=== PATIENT | female | born 1995 | race Caucasian/White ===

== ENCOUNTER 2017-03-17 16:40 | Emergency (ER) | payer OTHER ==
[~2017-03-17] VITALS: Ht 170.2 cm; Wt 58.8 kg
[2017-03-17 17:00] VITALS: TEMP 37; Ht 170.2 cm; Wt 58.8 kg
[2017-03-17] MEDS ORDERED: NORGTAB52 PO (17:27)
--- NOTE | 2017-03-17 17:39 | EMERGENCY ROOM VISIT NOTE ---
History Report prepared by Paula: Shannan Villalta Under the Supervision of: Dr. Jhonny Goldberg M.D. First contact with patient: 17:06 Chief Complaint: HEADACHE Stated Complaint: SEVERE HEADACHE/C1 C2 ROTATION DYSFUNCTION INJURY History of Present Illness The patient is a 22 year old female who presents to the Emergency Room with complaints of persistent headache starting today. The patient has had headaches caused by a C1 C2 rotation injury from swimming. Today her headache was worse with a shooting pain through her eyes and sensitivity to light. Her headache is currently improved. She took Excedrin and drank a lot of water prior to arrival. She denies any fall, head injury, or trauma. She is not having any problems with her arms or legs. She denies any fever, nausea, or vomiting. She has not had an MRI and does not follow with neurology. Her mother thinks these headache are triggered by stress. Source of History: patient, parent Onset: today Position: head Quality: ache Timing: other (persistent) Modifying Factors (Relieving): other (Excedrin, water) Associated Symptoms: No fevers, No nausea, No vomiting Note: Pt reports sensitivity to light. Review of Systems See HPI for pertinent positives & negatives. A total of 10 systems reviewed and were otherwise negative. Past Medical & Surgical History of C1 C2 rotation dysfunction injury. Family History Diabetes mellitus FH: heart disease Social History Smoking Status: Never Smoker Occupation Status: student Current/Historical Medications Scheduled Norgestimate-Ethinyl Estradiol (Tri-Previfem), 1 TAB PO DAILY Scheduled PRN Diclofenac (Voltaren), 75 MG PO BID PRN for Headache Allergies Coded Allergies: Sulfa Antibiotics (Verified Allergy, Unknown, rash, 09/25/14) Physical Exam Vital Signs Date Time Temp Pulse Resp B/P (MAP) Pulse Ox O2 Delivery O2 Flow Rate FiO2 03/17/17 18:50 78 16 123/71 100 Room Air 03/17/17 17:00 37.0 92 20 143/71 100 Room Air Physical Exam GENERAL: Patient is in no acute distress. HEENT: No acute trauma, normocephalic atraumatic, mucous membranes moist, no nasal congestion, no scleral icterus. Pupils equal and reactive to light. NECK: No stridor, no adenopathy, no meningismus, trachea is midline. LUNGS: Clear to auscultation bilaterally, no wheeze, no rhonchi, breath sounds equal. HEART: Without murmurs gallops or rubs, regular rate and rhythm. ABDOMEN: Soft, nontender, bowel sounds positive, no hernias, no peritonitis. EXTREMITIES: No cyanosis or edema, full range of motion of all the joints without pain or difficulty, no signs for acute trauma. NEUROLOGIC: Oriented x 3, no acute motor or sensory deficits, no focal weakness. No cerebellar deficits. SKIN: No rash, no jaundice, no diaphoresis Medical Decision & Procedures ER Provider Diagnostic Interpretation: Radiology results as stated below per my review and radiologist interpretation: MRI OF THE BRAIN COMBO CLINICAL HISTORY: Chronic headaches. COMPARISON STUDY: No priors. TECHNIQUE: MRI of the brain was performed utilizing various T1 and T2-weighted sequences in the axial, sagittal, and coronal planes. Contrast-enhanced sequences were acquired following the administration of 5.5 cc of Gadavist. FINDINGS: Brain parenchyma: There is a 13 mm T1 and T2 cluster of hypointense serpiginous structures in the left cerebellar hemisphere which likely represent flow voids, and a small feeding vessel is identified. 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 No internal enhancement is identified. The brain parenchyma is otherwise normal in appearance. There is no hemorrhage or mass effect. There is no restricted diffusion to suggest acute ischemia. No enhancing mass lesion is identified on the postcontrast images. Brennna-white matter differentiation is preserved. No extra-axial fluid collection is seen. The cerebellar tonsils are normal in configuration. Ventricles, sulci, and cisterns: Normal in configuration. Pituitary and sella: Unremarkable. Intracranial vasculature: Normal flow voids are maintained at the skull base. Orbits: The bony orbits are grossly intact. Orbital contents are normal in appearance. Sinuses and mastoids: Clear. Calvarium: Unremarkable. Cervical cord: Partially visualized cervical spinal cord is normal in morphology and signal intensity. IMPRESSION: 1. No acute intracranial abnormality. 2. 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 This is of doubtful significance. A precautionary 6 month precautionary follow-up examination is recommended. Electronically signed by: Jhonny Kidd M.D. 03/17/2017 7:42 PM Dictated Date/Time: 03/17/2017 7:34 PM Laboratory Results 03/17/17 17:33 1/1/18 17:33 Test 03/17/17 17:33 Red Blood Count 4.54 M/uL (4.2-5.4) Mean Corpuscular Volume 92.3 fL (80-100) Mean Corpuscular Hemoglobin 31.9 pg (25-34) Mean Corpuscular Hemoglobin Concent 34.6 g/dl (32-36) RDW Standard Deviation 43.2 fL (36.4-46.3) RDW Coefficient of Variation 12.8 % (11.5-14.5) Mean Platelet Volume 9.4 fL (7.4-10.4) Anion Gap 6.0 mmol/L (3-11) Est Creatinine Clear Calc Drug Dose 111.1 ml/min Estimated GFR () 133.0 Estimated GFR (Non- 114.7 BUN/Creatinine Ratio 17.3 (10-20) Calcium Level 9.5 mg/dl (8.5-10.1) Laboratory results reviewed by me. ED Course 1706: The patient was evaluated in room C3. A complete history and physical exam was performed. 1952: I discussed the patient's case with [place]. [place], [facility] [place] She will see the patient as an outpatient. She recommends a prescription for diclofenac for headaches as needed. 1999: I reevaluated the patient. I discussed results and discharge instructions with her and her mother: they verbalized understanding and agreement. The patient is ready for discharge. Medical Decision Differential diagnoses considered include migraine headache, intracranial bleeding, intracranial mass, stress, tension headache, occipital neuralgia. There is no leukocytosis or concerning anemia. No significant electrolyte abnormality or kidney failure. On exam, there were no focal neurologic deficits. The patient was not febrile or toxic. There is no meningismus. She had not suffered recent head trauma. The patient has had escalating headaches for a year. She has not had brain imaging. A brain MRI was done. No mass or bleeding seen, no stroke. There was a subtle vascular abnormality for which follow-up was recommended-this was thought incidental. The patient was not having significant pain and did not want any pain medication while in the ED. She was reassured by her testing. I spoke with her and her mother. I did consult Dr. Gonzalez of neurology. The patient was given a prescription for diclofenac at the recommendation of neurology. She will see the patient in the outpatient office. The patient was encouraged to rest, to stay well-hydrated and to return here for any worsening symptoms. Medication Reconcilliation Current Medication List: was personally reviewed by me Blood Pressure Screening Patient's blood pressure: Elevated blood pressure Blood pressure disposition: Elevated BP felt to be situational Consults Time Called: 1949 Consulting Physician: [place]. Gonzalez, [facility] [place] Returned Call: 1952 I discussed the patient's case with her. She will see the patient as an outpatient. She recommends a prescription for diclofenac for headaches as needed. Impression Primary Impression: Headache Scribe Attestation The scribe's documentation has been prepared under my direction and personally reviewed by me in its entirety. I confirm that the note above accurately reflects all work, treatment, procedures, and medical decision making performed by me. Departure Information Dispostion Home / Self-Care Prescriptions Diclofenac (Voltaren) 75 Mg Tabcr 75 MG PO BID Y for Headache, #15 TAB WITH FOOD Prov: Jhonny Goldberg M.D. 03/17/17 Referrals No Doctor, Assigned (PCP) Alice Gonzalez D.O. Forms HOME CARE DOCUMENTATION FORM, IMPORTANT VISIT INFORMATION Patient Instructions My [facility] Additional Instructions follow with Dr. Gonzalez of neurology--call in the am for an appt may use tylenol for pain do not use Exedrine Migraine more than 2 times per week try the Diclofenac prescribed for the headaches as needed rest fluids you may need a repeat MRI in 6 months for the vascular area we discussed return if worsening
[2017-03-17 17:48] LABS: HEMATOCRIT 41.9 % (37-47); HEMOGLOBIN 14.5 g/dL (12.0-16.0); MEAN CELL VOLUME 92.3 fL (80-100); MEAN CORPUSCULAR HEMOGLOBIN 31.9 pg (25-34); MEAN CORPUSCULAR HGB CONC 34.6 g/dl (32-36); MEAN PLATELET VOLUME 9.4 fL (7.4-10.4); PLATELET COUNT 277 K/uL (130-400); RED CELL DISTRIBUTION WIDTH CV 12.8 % (11.5-14.5); RED CELL DISTRIBUTION WIDTH SD 43.2 fL (36.4-46.3); WHITE BLOOD COUNT 7.05 K/uL (4.8-10.8)
[2017-03-17 18:09] LABS: CALCIUM 9.5 mg/dl (8.5-10.1); CREATININE 0.75 mg/dl (0.60-1.20); POTASSIUM 3.7 mmol/L (3.5-5.1)
[2017-03-17] MEDS ORDERED: GADAVIST IV PRN (19:15)
--- NOTE | 2017-03-17 19:43 | DIAGNOSTIC IMAGING REPORT ---
MRI OF THE BRAIN COMBO CLINICAL HISTORY: Chronic headaches. COMPARISON STUDY: No priors. TECHNIQUE: MRI of the brain was performed utilizing various T1 and T2-weighted sequences in the axial, sagittal, and coronal planes. Contrast-enhanced sequences were acquired following the administration of 5.5 cc of Gadavist. FINDINGS: Brain parenchyma: There is a 13 mm T1 and T2 cluster of hypointense serpiginous structures in the left cerebellar hemisphere which likely represent flow voids, and a small feeding vessel is identified. 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 No internal enhancement is identified. The brain parenchyma is otherwise normal in appearance. There is no hemorrhage or mass effect. There is no restricted diffusion to suggest acute ischemia. No enhancing mass lesion is identified on the postcontrast images. Brennan-white matter differentiation is preserved. No extra-axial fluid collection is seen. The cerebellar tonsils are normal in configuration. Ventricles, sulci, and cisterns: Normal in configuration. Pituitary and sella: Unremarkable. Intracranial vasculature: Normal flow voids are maintained at the skull base. Orbits: The bony orbits are grossly intact. Orbital contents are normal in appearance. Sinuses and mastoids: Clear. Calvarium: Unremarkable. Cervical cord: Partially visualized cervical spinal cord is normal in morphology and signal intensity. IMPRESSION: 1. No acute intracranial abnormality. 2. 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 This is of doubtful significance. A precautionary 6 month precautionary follow-up examination is recommended. Electronically signed by: Jhonny Kidd M.D. 03/17/2017 7:42 PM Dictated Date/Time: 03/17/2017 7:34 PM
[2017-03-17] MEDS ORDERED: DICL-201 PO (20:07)
[2017-03-17 20:24] VITALS: BP 133/76; PULSE 83; O2SAT 98
== END 2017-03-17 20:24 | disposition home or self-care (01) ==
LOC: C.EDB 16:41 → C.EDC 20:24
DX: R51 Headache (principal); Z79.3 Long term (current) use of hormonal contraceptives; Z83.3 Family history of diabetes mellitus; Z82.49 Family history of ischemic heart disease and other diseases of the circulatory system